=== PATIENT | male | born 1955 | race Caucasian/White ===

== ENCOUNTER 2020-07-19 15:28 | Emergency (ER) | payer MEDICARE, SELFPAY ==
--- NOTE | 2020-07-19 16:02 | ED.URI ---
HPI - URI/Sore Throat General Chief Complaint: Upper Respiratory Infection Stated Complaint: cough Time Seen by Provider: 07/19/20 16:31 Source: patient and RN notes reviewed Mode of arrival: ambulatory Limitations: no limitations History of Present Illness HPI Narrative: 65-year-old male presents with concern for 3-day history of productive cough with green mucus, decreased appetite. He denies chills, sweats, fever, body aches, shortness of breath. Denies taking any [id number] medications for symptoms MD elicited complaint: cough Related Data Allergies Allergy/AdvReac Type Severity Reaction Status Date / Time No Known Allergies Allergy Unknown Uncoded 07/19/20 16:31 Review of Systems Review of Systems: Narrative: CONSTITUTIONAL: Denies malaise, chills, sweats, or fever. EYES: Denies visual changes, redness, or discharge. ENT: Denies eye rhinorrhea, congestion, sinus pain, otalgia and sore throat. CARDIOVASCULAR: Denies chest pain, palpitations, or edema. RESPIRATORY: Reports cough. Denies dyspnea. GASTROINTESTINAL: Denies abdominal pain, nausea, vomiting, diarrhea. Reports decreased appetite SKIN: Denies rash or itching. MUSCULOSKELETAL: Denies myalgia. NEUROLOGIC: Denies headache. All systems reviewed & are unremarkable except as noted in HPI and below PMFSH Social History Social History Gender identity (if verbalized by the patient): Male Comments At time of signature, agree with nursing past medical, surgical, social and family history. There is no relevant family history pertinent to the presenting complaint Exam Narrative: Exam Narrative: GENERAL: Well-appearing, well-nourished, and in no acute distress. HEAD: Normocephalic EYES: PERRLA, conjunctivae clear ENT: Nares clear, turbinates, clear discharge. Mucous membranes moist. TM pearly alvarado with dull light reflex bilaterally; no tragal tenderness. Oropharynx not erythematous without lesions. Tonsils not enlarged and without exudate, no drooling, no hoarseness, no trismus, uvula midline. NECK: Supple. No lymphadenopathy CHEST: Clear to auscultation, slightly decreased on the right lower lobe. No wheezing, rhonchi, rales, or stridor. No respiratory distress, speaks in full sentences. HEART: Regular rate and rhythm. No murmur heard. SKIN: Warm, dry, no rash. NEURO: Alert and oriented x3. PSYCH: Normal mood and affect Course Course Emergency Course: Patient is aware of diagnosis, understands and agrees to treatment plan. Anticipatory guidance given. Patient agrees to follow-up as directed and is aware of reasons to seek care at the emergency department. Portions of this record may have been created with voice recognition software Vital Signs Vital signs: Reviewed. MDM - URI/Sore Throat MDM Narrative Medical decision making narrative: Differential diagnosis considered: [place] virus, strep pharyngitis, allergic rhinitis, upper respiratory tract infection, sinusitis, rhinosinusitis, nasopharyngitis. viral pharyngitis, otitis media, otitis externa, pneumonia, bronchitis, viral cough syndrome, viral syndrome, and influenza. Exam findings show no acute concerns or changes; patient is non-toxic appearing and is in no distress. Patient is appropriate for outpatient treatment and follow-up. Lab Data Attestation: I reviewed the patient's lab results. Critical Care Time Critical Care Time Critical Care Time: No Discharge Plan Discharge Clinical Impression: URI with cough and congestion Patient Disposition: Home, Self-Care Condition: Stable Instructions: Antibiotic Form Additional Instructions: Rapid Covid test was negative today. Viral illness may last between 7-21 days; antibiotics do not cure viral illness and are NOT recommended at this time. Recommend antihistamine such as Benadryl at night time and Zyrtec or Lidia during the day Cough syrup may cause drowsiness; avoid driving or take
[2020-07-19 16:27] VITALS: BP 141/83; PULSE 89; RESP 18; TEMP 37.3; O2SAT 98
== END 2020-07-19 17:01 | disposition home or self-care (01) ==
PROVIDERS: Emergency Provider Nurse Practitioner
DX: J06.9 Acute upper respiratory infection, unspecified (principal); Z20.822 Contact with and (suspected) exposure to COVID-19; I10 Essential (primary) hypertension; E11.9 Type 2 diabetes mellitus without complications; Z85.828 Personal history of other malignant neoplasm of skin
CPT/HCPCS: 87426; 99213; C9803; G0463

== ENCOUNTER 2020-10-06 23:34 | Inpatient (IN) | payer MEDICARE, SELFPAY ==
--- NOTE | ~2020-10-06 | XR_ITS ---
EXAMINATION: XR chest 1V DATE: 10/07/2020 01:22 INDICATION: Altered mental status. TECHNIQUE: frontal view of the chest was obtained. COMPARISON: None FINDINGS: Was reportedly uncooperative with evaluation and the lateral right lower lung zone and costophrenic a ngle are excluded from the [id number]. [place]infold projects over the lateral right hemithorax. No air space opacities, pulmonary edema, pleural effusion or pneumothorax. The cardiomediastinal silhouette is normal. IMPRESSION: 1. Mildly limited study which excludes the right costophrenic angle and which demonstrates no acute c ardiopulmonary disease. Reviewed, dictated and finalized at location A. IMPRESSION: 1. Mildly limited study which excludes the right costophrenic angle and which d emonstrates no acute cardiopulmonary disease.
--- NOTE | ~2020-10-06 | CT_ITS ---
EXAMINATION: CT brain wo con DATE: 10/07/2020 01:16 INDICATION: Altered mental status TECHNIQUE: Computed tomography (CT) of the head was performed without intravenous contrast. Sagittal and coronal reconstructions were performed. The mA was adjusted according to patient size. Iterative reconstruction technique was employed. The dose-length product was 681.00 mGy-cm. COMPARISON: None FINDINGS: No acute intracranial hemorrhage, acute infarction or abnormal extra axial fluid collection. There is minimal scattered white matter hypoattenuation consistent with chronic small vessel ischemic disease . Ventricles are normal and symmetric. No mass/mass effect. Changes of left intraocular lens replace ment. The orbits, paranasal sinuses and mastoid air cells are normal. IMPRESSION: 1. Normal aging brain. No acute intracranial process. Reviewed, dictated and finalized at location A.
[2020-10-06 23:36] VITALS: BP 173/100; PULSE 102; RESP 26; TEMP 36.6; O2SAT 99
--- NOTE | 2020-10-06 23:36 | ED.AMS ---
HPI - Altered Mental Status General Chief Complaint: Altered Mental Status Stated Complaint: confused/found naked outside Time Seen by Provider: 10/06/20 23:36 History of Present Illness HPI narrative: FOund wandering naked outside. Confused. He says that he lives in [place]. He went skating today. When he was done he sat by the side of the dave and watched the fisherman. He witnessed at least 3 crimes. He denies any physical symptoms. He is able to tell me that he has diabetes. He thinks he may have a heart problem as well. History extremely limited due to mental status. Related Data Home Medications Medication Instructions Recorded Confirmed glipizide 10 mg PO DAILY 10/07/20 10/07/20 metformin 500 mg PO DAILY 10/07/20 10/07/20 pravastatin 40 mg PO HS 10/07/20 10/07/20 tamsulosin 0.4 mg PO DAILY 10/07/20 10/07/20 zolpidem 10 mg PO HS PRN 10/07/20 10/07/20 Allergies Allergy/AdvReac Type Severity Reaction Status Date / Time No Known Allergies Allergy Unknown Uncoded 07/19/20 16:31 Review of Systems Review of Systems: ROS unobtainable: Yes unobtainable due to mental status Cardiovascular: Cardiovascular: Denies chest pain Respiratory: Respiratory: Denies dyspnea [facility] Social History Social History Smoking status: Former smoker Alcohol intake: current Substance use: current Substance use type: marijuana Gender identity (if verbalized by the patient): Male Spiritual care concerns: No Exam Const: General: no acute distress and confusion HENMT: Head: normal to inspection Eyes: Pupils: Equal, round and reactive pupils present Neck: Neck: normal visual inspection Resp: Effort & Inspection: tachypneic Auscultation: clear to auscultation bilaterally Cardio: Rate: tachycardic Rhythm: regular rhythm GI: GI Palp: Yes Soft to palpation and No Tenderness to palpation present (GI) Skin: General skin exam: normal color Neuro: General: moves all extremities and no focal motor deficits Speech: normal speech Other: oriented x1. 5/5 strength throughout. Extrem: General: normal to inspection Course Vital Signs Vital signs: Vital Signs Temperature 36.6 C 10/06/20 23:36 Pulse Rate 102 H 10/06/20 23:36 Respiratory Rate 26 H 10/06/20 23:36 Blood Pressure 173/100 H 10/06/20 23:36 Pulse Oximetry 99 10/06/20 23:36 Temperature 36.9 C 10/07/20 08:00 Pulse Rate 94 10/07/20 08:00 Respiratory Rate 20 10/07/20 08:00 Blood Pressure 138/68 10/07/20 08:00 Pulse Oximetry 98 10/07/20 08:00 MDM - Altered Mental Status MDM Narrative Medical decision making narrative: Found naked and confused near his home. Tachycardic and hypertensive. I suspect alcohol withdrawal. Still agitated and combative after 4 mg Ativan. bolus dose phenobarbital given with good response. He will need very close monitoring. I will admit to the ICU. Differential Diagnosis Differential diagnosis: Likely alcoholic intoxication, altered mental status, delirium, dementia, hypoglycemia, hyponatremia, sepsis and other Medical Records Attestation: I reviewed the patient's medical records. Lab Data Attestation: I reviewed the patient's lab results. Result diagrams: 10/07/20 00:04 10/07/20 00:04 Labs: Lab Results 10/07/20 10/07/20 10/07/20 Range/Units 00:00 00:00 00:04 WBC 11.6 H (4.5-10.0) K/mm3 RBC 5.60 (4.6-6.20) M/mm3 Hgb 16.0 (14.0-18.0) g/dL Hct 46.1 (42.0-52.0) % MCV 82.3 (80-100) fl MCH 28.6 (26-34) pg MCHC 34.7 (32-36) g/dl RDW 12.4 (11.5-14.5) % Plt Count 320 (150-375) k/mm3 MPV 10.3 (7.4-10.4) fl Immature Gran % (Auto) 0.3 (0-0.5) % Neut % (Auto) 70.9 (45.5-73.1) % Lymph % (Auto) 21.0 (18.3-44.2) % [place] % (Auto) 6.1 (2.6-8.5) % Eos % (Auto) 1.4 (0-4.4) % Baso % (Auto) 0.3 (0.2-1.2) % Lymph # (Auto) 2.44 (0.9-3.2) K/mm3
[2020-10-07] VITALS (9 sets, daily range): BP systolic 128–153; BP diastolic 68–89; PULSE 92–98; RESP 16–20; TEMP 36.8–36.9; O2SAT 93–98; BMI 31.0
[2020-10-07 00:10] LABS: Add Urine Microscopic? YES; Appearance Urine Clear (Clear); Bilirubin Urine Negative (Negative); Blood Urine Negative (Negative); Color Urine Straw (Yellow); Glucose Urine UA 3+ mg/dL (Negative); Ketones Urine Negative (Negative); Leukocyte Esterase Ur Negative LEU/UL (Negative); Nitrate Urine Negative (Negative); Protein Urine Negative (Negative); RBC Urine 0-2 /hpf (0-2); Specific Grav Ur 1.029 (1.001-1.035); Urobilinogen Urine Negative mg/dL (<2.0)
[2020-10-07 00:21] LABS: Basophils Percent Auto 0.3 % (0.2-1.2); Eosinophils Absolute Auto 0.2 K/mm3 (0-0.3); Eosinophils Percent Auto 1.4 % (0-4.4); Hematocrit 46.1 % (42.0-52.0); Immature Granulocyte Absolute 0.03 K/mm3 (0.00-0.031); Immature Granulocyte Percent A 0.3 % (0-0.5); Lymphocytes Absolute Auto 2.44 K/mm3 (0.9-3.2); Mean Corpuscular HGB Conc 34.7 g/dl (32-36); Mean Corpuscular Hemoglobin 28.6 pg (26-34); Mean Corpuscular Volume 82.3 fl (80-100); Mean Platelet Volume 10.3 fl (7.4-10.4); Monocytes Absolute Auto 0.7 K/mm3 (0.1-0.6); Monocytes Percent Auto 6.1 % (2.6-8.5); Neutrophils Absolute Auto 8.3 K/mm3 (1.3-6.7); Neutrophils Percent Auto 70.9 % (45.5-73.1); Platelet Count Result 320 k/mm3 (150-375); Red Cell Distribution Width 12.4 % (11.5-14.5); White Blood Count 11.6 K/mm3 (4.5-10.0)
[2020-10-07] MEDS: LORazepam INJ (*CRX) 2 MG/ML VIAL (00:28)
[2020-10-07 00:30] LABS: Ethanol < 10 mg/dL (<10); INR 0.8; Prothrombin Time 11.8 Seconds (11.1-14.7)
[2020-10-07 00:31] LABS: Alanine Aminotransferase 21 U/L (4-50); Albumin Level 4.3 g/dL (3.5-5.1); Alkaline Phosphatase 229 U/L (38-126); Anion Gap 7 mmol/L (8-16); Aspartate Amino Transferase 26 U/L (17-59); Bilirubin,Total 0.5 mg/dL (0.2-1.3); Blood Urea Nitrogen 21 mg/dL (9-20); Calcium 9.7 mg/dL (8.4-10.2); Carbon Dioxide 32 mmol/L (22-30); Chloride 102 mmol/L (98-107); Estimated CRCL calculation 118 ml/min; Estimated Glomerular Filt Rate > 60; Glucose 375 mg/dL (75-110); Partial Thromboplastin Time 24.7 SECONDS (22.3-36.8); Potassium 4.2 mmol/L (3.4-5.0); Sodium 141 mmol/L (137-145)
[2020-10-07 00:32] LABS: Lactic Acid Reflex 2.3 mmol/L (0.7-2.1)
[2020-10-07] MEDS: PHENobarbitaL sodium (*CRX) 130 MG/ML VIAL 260 MG IV PUSH (00:33)
[2020-10-07 00:35] LABS: Amphetamine Screen Urine Negative (Negative); Barbiturate Screen Urine Negative (Negative); Benzodiazepines Screen Urine Negative (Negative); Cannabinoid Screen Urine Positive (Negative); Cocaine Screen Urine Negative (Negative); Methadone Screen Urine Negative (Negative); Opiate Screen Urine Negative (Negative); Phencyclidine Screen Urine Negative (Negative)
[2020-10-07] MEDS: LORazepam INJ (*CRX) 2 MG/ML VIAL IV PUSH (00:43)
--- NOTE | 2020-10-07 00:44 | PC.NURSE ---
Went to give patient 1mg Ativan IVP. After pulling medication, per EDP Mary via verbal order read back, increase dose to 2mg Ativan IVP after patient became combative and belligerent towards nursing staff.
--- NOTE | 2020-10-07 00:47 | PC.NURSE ---
00:10 Pt with increased restlessness and will not follow directions. Sitter is with pt attempting to redirect and pt continues to attempt to get up and leave. Pt attempts to hit and is swinging at staff. EDP notified. Orders received for Ativan IVP 2mg x 2 and Phenabarbital IVP.
--- NOTE | 2020-10-07 01:45 | ECG_ITS ---
Measurements Intervals Clark Rate: 103 P: 36 OH: 155 QRS: -30 QRSD: 153 T: 25 QT: 371 QTc: 486 Interpretive Statements SINUS TACHYCARDIA LEFT AXIS DEVIATION RIGHT BUNDLE BRANCH BLOCK ABNORMAL ECG Electronically Signed On 10-07-2020 7:14:10 CDT by Valdez Kim D.O.
[2020-10-07] MEDS: SODIUM CHLORIDE 0.9% IV 1,000 ML 999 ML IV CONT ×2 (02:10→02:11)
[2020-10-07] MEDS: LORazepam INJ (*CRX) 2 MG/ML VIAL 1 MG IV PUSH (02:11)
--- NOTE | 2020-10-07 02:12 | PC.NURSE ---
Pt arouses to name and stimulus. Pt sleeping. No acute distress. Sitter at bedside.
[2020-10-07 03:15] LABS: Reflex Lactic Acid Yes or No Add Lactic
--- NOTE | 2020-10-07 03:40 | ADMGEN ---
This patient, Toni Lockett, was admitted to Intensive Care Unit-11. Patient/family oriented to hospital policies and general routines including ID bracelet, bed and alarms, visiting hours, pain management, procedures, bathroom and other care routines, personal items, smoking policy, room service/diet, and visiting hours. Information on how to activate the Rapid Response Team has been discussed. Patient/Family are encouraged to report perceived risks to care and to ask questions if they do not understand what they are told or what they should do.
[2020-10-07 04:11] LABS: Lactic Acid 1.8 mmol/L (0.7-2.1)
[2020-10-07] MEDS: LACTATED RINGERS 1,000 ML 125 ML IV CONT (05:52)
--- NOTE | 2020-10-07 06:01 | PC.NURSE ---
Stood at side of bed stand by assist to utilize the urinal. Remains alert to self. States he is in the hospital but can't remember which one or what town he is in. Assist back to bed. Bed in low position with bed alarm activated on Zone 2. receptionist clerk remains at bedside in an effort to promote patient safety.
[2020-10-07 08:28] LABS: Glucose Point of Care 387 (65-105)
[2020-10-07] MEDS: INSULIN ASPART (*BKC) 100 UNITS/ML SUB-Q (08:37)
--- NOTE | 2020-10-07 09:32 | PM.SD2 ---
Same Day Admit/Disch: HPI History of Present Illness Chief complaint: Acute encephalopathy, suspect alcohol withdrawal Narrative: Toni Lockett is a 65 year old male patient is alert and oriented x3, he had taken edible marijuana yesterday and became confused and was brought to the ER as patient was found naked wondering around. Patient stats he takes care of his disable and they no phone and no of communications, patient labs, CT of head and chest x-ray are normal, will discharge patient home, care child care nurse will provide cab to get him home. again patient instructed not take edible marijuana, follow up with his primary care provider as soon as possible. patient is instructed if any symptoms get worsen to go to nearest ER. [facility] Social History Social History Smoking status: Former smoker Alcohol intake: current Substance use: current Substance use type: marijuana Gender identity (if verbalized by the patient): Male Spiritual care concerns: No Same Day Admit/Disch: Med Pre-admit Medications Home Medications Medication Instructions Recorded Confirmed Type glipizide 10 mg PO DAILY 10/07/20 10/07/20 History metformin 500 mg PO DAILY 10/07/20 10/07/20 History pravastatin 40 mg PO HS 10/07/20 10/07/20 History tamsulosin 0.4 mg PO DAILY 10/07/20 10/07/20 History zolpidem 10 mg PO HS PRN 10/07/20 10/07/20 History Exam Narrative: Exam Narrative: Patient is comfortable, NAD HEENT: eyes are clear and none icteric LUNGS:CTA HEART: RR S1S2 ABD: BS+, Soft and nontender Lower extremities: no edema SKIN: nonjaundiced Neuro: grossly intact. DS: Data Data Completed and Pending Labs on day of discharge: Labs from last 24 hours 10/07/20 10/07/20 10/07/20 08:26 03:35 00:04 WBC RBC Hgb Hct MCV MCH MCHC RDW Plt Count MPV Immature Gran % (Auto) Neut % (Auto) Lymph % (Auto) [place] % (Auto) Eos % (Auto) Baso % (Auto) Lymph # (Auto) [place] # (Auto) Eos # (Auto) Baso # (Auto) Abs Immat Gran (auto) Absolute Neuts (auto) Absolute Nucleated RBC Nucleated RBC % PT INR APTT Sodium Potassium Chloride Carbon Dioxide Anion Gap BUN Creatinine Estim Creat Clear Calc Estimated GFR Glucose POC Capillary Glucose 387 H Lactic Acid 1.8 Calcium Total Bilirubin AST ALT Alkaline Phosphatase Total Protein Albumin Urine Color Urine Appearance Urine pH Ur Specific Sylvester Urine Protein Urine Glucose (UA) Urine Ketones Ur Blood (Man) Urine Nitrate Urine Bilirubin Urine Urobilinogen Leukocyte Esterase Rfl Urine RBC Urine Opiates Screen Urine Methadone Screen Ur Barbiturates Screen Ur Phencyclidine Scrn Ur Amphetamine Screen U Benzodiazepines Scrn Urine Cocaine Screen U Cannabinoids Screen Ethyl Alcohol < 10 10/07/20 10/07/20 10/07/20 00:04 00:04 00:04 WBC RBC Hgb Hct MCV MCH MCHC RDW Plt Count MPV Immature Gran % (Auto) Neut % (Auto) Lymph % (Auto) [place] % (Auto) Eos % (Auto) Baso % (Auto) Lymph # (Auto) [place] # (Auto) Eos # (Auto) Baso # (Auto) Abs Immat Gran (auto) Absolute Neuts (auto) Absolute Nucleated RBC Nucleated RBC % PT 11.8 INR 0.8 APTT 24.7 Sodium 141 Potassium 4.2 Chloride 102 Carbon Dioxide 32 H Anion Gap 7 L BUN 21 H Creatinine 0.70 Estim Creat Clear Calc 118 Estimated GFR > 60 Glucose 375 H POC Capillary Glucose Lactic Acid 2.3 H Calcium 9.7 Total Bilirubin 0.5 AST 26 ALT 21 Alkaline Phosphatase 229 H Total Protein 8.0 Albumin 4.3 Urine Color Urine Appearance Urine pH Ur Specific Sylvester Urine Protein Urine Glucose (UA) Urine Ketones U
--- NOTE | 2020-10-07 09:50 | WPDCNINT ---
Assessment and Plan Assessment and plan (1) Toxic encephalopathy: Code(s): G92 - Toxic encephalopathy Status: Acute Assessment and Plan: Likely secondary to a double marijuana and Ambien. Patient now alert oriented x3 and wants to leave against medical advice. He seems to understand the nature of his medical problems and implications of not seeking treatment and leaving against medical advice. I explained to him that he may deteriorate if he leaves against medical advice and may even and he told me that the he does not care and he has to get back to check on his who was disabled. I did offer to contact appropriate authorities who can check on his but he was adamant on leaving. I consulted outdoor emergency care technician to assist with logistics as patient had no close or personal belongings with him. Patient was seen by outdoor emergency care technician and was provided with clothes and shoes. Patient was discharged by Dr. Montague and has already left the unit (2) Diabetes mellitus: Code(s): E11.9 - Type 2 diabetes mellitus without complications Status: Acute Assessment and Plan: Patient had elevated blood sugars. I started him on sliding scale while he was inpatient and he was given 1 dose of insulin Rn Cardiovascular Icu Consult Note Consult date: 10/07/20 Time Seen: 08:00 HPI: Toni Lockett is a 65 year old male with past medical history of diabetes and hypertension who was brought to the hospital by EMS last night as he was found wandering on the street naked. On arrival to ER he was found to be confused hallucinating and delusional. Workup was essentially unremarkable in the ER mildly elevated lactic acid level positive for cannabinoids. Head CT was negative Patient was admitted to ICU This morning when I saw the patient he was awake alert oriented x3 and denies any complaints. He stated that he is not sure marin in the hospital would like to go home. When asked him what happened last night he told me he had edible marijuana and took his regular Ambien which probably interacted and made him confused. He states that he feels fine and would like to go home now since he has a which is disabled and no one else to take care of her see her. He states that he feels fine and has no complaints. He told me he has not seen a physician in last 9 months has not taken his medications because of financial difficulty. 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 Patient denied any suicidal homicidal ideation or attempts in the past. He was able to answer is medical problems which includes diabetes and hypertension and was able to tell me what medications he is supposed to be on and why he is not on them. Past medical history-diabetes and hypertension Social history-denies alcohol or smoking, does use marijuana frequently, denies any other drug use, retired Review of Systems Review of Systems: Narrative: Review of system was positive for nasal congestion for which he states he takes in nasal spray at home but is unable to tell me the name He denies any other complaints and all other systems were reviewed and were negative [facility] Social History Social History Smoking status: Former smoker Alcohol intake: current Substance use: current Substance use type: marijuana Gender identity (if verbalized by the patient): Male Spiritual care concerns: No Meds Home Medications and Allergies Home Medications Medication Instructions Recorded Confirmed Type glipizide 10 mg PO DAILY 10/07/20 10/07/20 History metformin 500 mg PO DAILY 10/07/20 10/07/20 History pravastatin 40 mg PO HS 10/07/20 10/07/20 History tamsulosin 0.4 mg PO DAILY 10/07/20 10/07/20 History zolpidem 10 mg PO HS PRN 10/07/20 10/07/20 History Allergies Allergy/AdvReac Type Severity Reaction Status Date / Time No Known Aller
--- NOTE | 2020-10-07 10:33 | PC.NURSE ---
received call from cherie schwab asking that pt have psych eval before discharge. contacted agricultural equipment test engineer and told pt is already gone.
== END 2020-10-07 09:12 | disposition home or self-care (01) | DRG 948 ==
LOC: ANHED 10-07 01:46 → ANHICU 10-07 02:09
PROVIDERS: Admitting Provider Family Medicine; Emergency Provider Emergency Medicine; Visit Provider Family Medicine
DX: R41.0 Disorientation, unspecified (principal); E11.9 Type 2 diabetes mellitus without complications; I10 Essential (primary) hypertension; F12.90 Cannabis use, unspecified, uncomplicated; Z28.21 Immunization not carried out because of patient refusal; Z79.84 Long term (current) use of oral hypoglycemic drugs; Z79.899 Other long term (current) drug therapy; Z87.891 Personal history of nicotine dependence
CPT/HCPCS: 36415; 70450; 71045; 80053; 80307; 81001; 83605; 85025; 85610; 85730; 87040; 93005; 96374; 96375; 99285; A9270; J1815; J2060; J2560; J7030; J7120